=== PATIENT | male | born 1950 ===

== ENCOUNTER → 2025-03-11 | Outpatient (CLI) | payer BC, MEDICARE | LOC: M WUC 10:40 | PROVIDERS: ATTEND Student in an Organized Health Care Education/Training Program | DX: S20.211A Contusion of right front wall of thorax, initial encounter (principal); X58.XXXA Exposure to other specified factors, initial encounter; Y92.9 Unspecified place or not applicable ==

== ENCOUNTER → 2025-07-27 | Outpatient (REF) | payer MEDICARE ==
[2025-07-27 19:00] LABS: IRON (FE) 80.0 UG/DL (65-175); PERCENT SATURATION 27.1 % (19.7-50.0)
[2025-07-27 19:02] LABS: VITAMIN B12 LEVEL 426.0 PG/ML (211-911)
[2025-07-27 19:35] LABS: HEPATITIS C VIRUS ABY INDEX 0.02 INDEX (<0.8)
[2025-07-29 09:18] LABS: PROTEIN, TOTAL SO 6.8 g/dL (6.1-8.1)
[2025-07-30 12:41] LABS: FREE KAPPA LIGHT CHAINS SERUM 15.6 mg/L (3.3-19.4); FREE LAMBDA LIGHT CHAINS SERUM 13.0 mg/L (5.7-26.3); KAPPA/LAMBDA RATIO SERUM 1.20 (0.26-1.65)
[2025-07-31 14:33] LABS: LYME TOTAL ANTIBODY CIA <= 0.90 Index (<=0.90)
[2025-08-02 08:06] LABS: ALBUMIN SO 4.2 g/dL (3.8-4.8); ALPHA 1 GLOBULINS SO 0.3 g/dL (0.2-0.3); ALPHA 2 GLOBULINS SO 0.7 g/dL (0.5-0.9); BETA 2 GLOBULIN SO 0.4 g/dL (0.2-0.5); BETA GLOBULIN SO 0.4 g/dL (0.4-0.6); GAMMA GLOBULINS SO 0.8 g/dL (0.8-1.7)
[2025-08-02 13:46] LABS: VITAMIN B1 LEVEL WHOLE BLOOD 162 nmol/L (78-185)
== END ==
LOC: M LAB REF 17:01
PROVIDERS: ATTEND Internal Medicine
DX: R53.83 Other fatigue (principal); G62.9 Polyneuropathy, unspecified